=== PATIENT | male | born 1990 | race American Indian/Alaskan Native ===

== ENCOUNTER 2017-02-23 21:15 | Emergency (ER) | payer SELFPAY ==
[2017-02-23 21:36] VITALS: BP 119/76
[2017-02-23 22:40] LABS: Bilirubin,Urine NEG (Negative)
[2017-02-23 22:41] LABS: Blood,Urine SM (Negative); Ketones,Urine NEG (Negative); Leukocyte Esterase,Urine NEG (Negative); Mucus,Urine 3+ /HPF; Nitrite,Urine NEG (Negative); Protein,Urine <15 mg/dL mg/dL (Negative); Urobilinogen,Urine < 2.0 mg/dL (<2.0)
--- NOTE | 2017-02-23 23:09 | Emergency Department Report ---
HPI - General Chief Complaint: Urogenital-Male Time Seen by Provider: 02/23/17 22:50 - HPI HPI: Patient is a 26-year-old male presents to ED and this status is positive for herpes and he wanted to be checked. Patient denies fever/chills/nausea/vomiting /dysuria/lesions/anal pain/scrotal pain/penile discharge or any other problems. ED Past Medical Hx - Past Medical History Previous Medical History?: No - Surgical History Past Surgical History?: No - Social History Smoking Status: Current Every Day Smoker Substance Use Type: Marijuana - Medications Home Medications: Home Medications Medication Instructions Recorded Confirmed Last Taken Type Acetaminophen/Codeine [Tylenol #3] 1 tab PO Q6H PRN #20 tab 02/08/15 Unknown Rx Ibuprofen [Motrin] 600 mg PO Q8H PRN #50 tablet 02/08/15 Unknown Rx Sulfamethoxazole/Trimethoprim 1 each PO BID #20 tablet 02/08/15 Unknown Rx [Bactrim Ds] ED Review of Systems ROS: Stated complaint: POSS STD Other details as noted in HPI Constitutional: denies: chills, fever Eyes: denies: eye pain, eye discharge, vision change ENT: denies: ear pain, throat pain Respiratory: denies: cough, shortness of breath, wheezing Cardiovascular: denies: chest pain, palpitations Endocrine: no symptoms reported Gastrointestinal: denies: abdominal pain, nausea, diarrhea Genitourinary: denies: urgency, dysuria Musculoskeletal: denies: back pain, joint swelling, arthralgia Skin: denies: rash, lesions Neurological: denies: headache, weakness, paresthesias Psychiatric: denies: anxiety, depression Hematological/Lymphatic: denies: easy bleeding, easy bruising Physical Exam - Physical Exam Vital Signs: Vital Signs 02/23/17 21:31 Temperature 99.0 F Pulse Rate 101 H Respiratory 18 Rate Blood Pressure 119/76 [Right] O2 Sat by Pulse 100 Oximetry Physical Exam: GENERAL: Alert and oriented x3, no apparent distress, Normal Gait, atraumatic. LUNGS: Symetrical with respiration, No wheezing, no rales or crackles, CTAB. HEART: S1, S2 present, regular rate and rhythm without murmur, no rubs, no gallops. SKIN: Warm and dry, No lesions, No ulceration or induration present. ED Course Vital Signs 02/23/17 21:31 Temperature 99.0 F Pulse Rate 101 H Respiratory 18 Rate Blood Pressure 119/76 [Right] O2 Sat by Pulse 100 Oximetry ED Medical Decision Making - Medical Decision Making 26-year-old male presents with STD testing ED course: A urinalysis ordered. Urinalysis negative Patient has no symptoms or lesions Vital signs are normal patient has no acute distress Discussed with patient symptoms of herpes. Patient understands Instructions given discussed follow-up with health Department for further testing. Critical care attestation.: If time is entered above; I have spent that time in minutes in the direct care of this critically ill patient, excluding procedure time. ED Disposition Clinical Impression: Exposure to genital herpes Disposition: DISCHARGED TO HOME OR SELFCARE Is pt being admited?: No Does the pt Need Aspirin: No Condition: Stable Instructions: Genital Herpes Simplex (ED) Additional Instructions: Follow-up with clinic or health department as referred for further testing If any symptoms arise return to ED. Referrals: PRIMARY CARE [Primary Care Provider] - 3-5 Days [facility] [Outside] - 3-5 Days [facility] [Outside] - 3-5 Days [facility] [Outside] - 3-5 Days Forms: Accompanied Note, Work/School Release Form(ED) Time of Disposition: 23:35
== END 2017-02-23 23:40 | disposition home or self-care (01) ==
LOC: ED 21:15
DX: Z20.2 Contact with and (suspected) exposure to infections with a predominantly sexual mode of transmission (principal); F17.200 Nicotine dependence, unspecified, uncomplicated; F12.10 Cannabis abuse, uncomplicated
CPT/HCPCS: 81001; 99282

== ENCOUNTER 2017-06-14 11:54 | Emergency (ER) | payer SELFPAY ==
[2017-06-14 13:06] VITALS: BP 123/74
== END 2017-06-14 15:10 ==
LOC: ED 11:54
DX: L02.32 Furuncle of buttock (principal); Z53.21 Procedure and treatment not carried out due to patient leaving prior to being seen by health care provider

== ENCOUNTER 2017-06-15 05:33 | Emergency (ER) | payer SELFPAY ==
[2017-06-15 05:39] VITALS: BP 116/87
--- NOTE | 2017-06-15 08:02 | Emergency Department Report ---
- General Chief complaint: Skin/Abscess/Foreign Body Stated complaint: CYST ON BUTTOCKS Time Seen by Provider: 06/15/17 07:08 Source: patient Mode of arrival: Ambulatory Limitations: No Limitations - History of Present Illness Initial comments: This is a 27-year-old male nontoxic, well nourished in appearance, no acute signs of distress presents to the ED complaining of boil to the cactus region 4 days. Patient stated he had similar episode last year and had a incision and drainage so patient was concerned and brought into the hospital. Patient denies any trauma to the region. Patient denies any fever, chills, testicular pain, swelling, numbness, tingling, back pain, shortness of breath, nausea, vomiting, chest pain, or abdominal pain. Patient denies any allergies or past medical history. MD complaint: abscess/boil -: Gradual, days(s) (4) Tetanus Up to Date: yes Location: buttocks Severity: mild Severity scale (0 -10): 4 Quality: aching Consistency: constant Improves with: none Worsens with: none Context: none Associated symptoms: denies other symptoms Treatments Prior to Arrival: none - Related Data Previous Rx's Medication Instructions Recorded Last Taken Type Acetaminophen/Codeine [Tylenol #3] 1 tab PO Q6H PRN #20 tab 02/08/15 Unknown Rx Ibuprofen [Motrin] 600 mg PO Q8H PRN #50 tablet 02/08/15 Unknown Rx Sulfamethoxazole/Trimethoprim 1 each PO BID #20 tablet 02/08/15 Unknown Rx [Bactrim Ds] Amoxicillin/K Clav Tab [Augmentin 1 tab PO Q12HR #20 tab 06/15/17 Unknown Rx 875 mg] traMADol [Ultram] 50 mg PO Q6HR PRN #15 tablet 06/15/17 Unknown Rx Allergies Allergy/AdvReac Type Severity Reaction Status Date / Time No Known Allergies Allergy Unverified 02/08/15 08:42 Abscess Boil HPI - HPI Chief Complaint: Skin/Abscess/Foreign Body Stated Complaint: CYST ON BUTTOCKS Time Seen by Provider: 06/15/17 07:08 Home Medications: Previous Rx's Medication Instructions Recorded Last Taken Type Acetaminophen/Codeine [Tylenol #3] 1 tab PO Q6H PRN #20 tab 02/08/15 Unknown Rx Ibuprofen [Motrin] 600 mg PO Q8H PRN #50 tablet 02/08/15 Unknown Rx Sulfamethoxazole/Trimethoprim 1 each PO BID #20 tablet 02/08/15 Unknown Rx [Bactrim Ds] Amoxicillin/K Clav Tab [Augmentin 1 tab PO Q12HR #20 tab 06/15/17 Unknown Rx 875 mg] traMADol [Ultram] 50 mg PO Q6HR PRN #15 tablet 06/15/17 Unknown Rx Allergies/Adverse Reactions: Allergies Allergy/AdvReac Type Severity Reaction Status Date / Time No Known Allergies Allergy Unverified 02/08/15 08:42 ED Review of Systems ROS: Stated complaint: CYST ON BUTTOCKS Other details as noted in HPI Constitutional: denies: chills, fever Eyes: denies: eye pain, eye discharge, vision change ENT: denies: ear pain, throat pain Respiratory: denies: cough, shortness of breath, wheezing Cardiovascular: denies: chest pain, palpitations Endocrine: no symptoms reported Gastrointestinal: denies: abdominal pain, nausea, diarrhea Genitourinary: denies: urgency, dysuria Musculoskeletal: denies: back pain, joint swelling, arthralgia Skin: denies: rash, lesions Neurological: denies: headache, weakness, paresthesias Psychiatric: denies: anxiety, depression Hematological/Lymphatic: denies: easy bleeding, easy bruising ED Past Medical Hx - Past Medical History Previous Medical History?: No - Surgical History Past Surgical History?: No - Social History Smoking Status: Current Every Day Smoker Substance Use Type: Marijuana - Medications Home Medications: Home Medications Medication Instructions Recorded Confirmed Last Taken Type Acetaminophen/Codeine [Tylenol #3] 1 tab PO Q6H PRN #20 tab 02/08/15 Unknown Rx Ibuprofen [Motrin] 600 mg PO Q8H PRN #50 tablet 02/08/15 Unknown Rx Sulfamethoxazole/Trimethoprim 1 each PO BID #20 tablet 02/08/15 Unknown Rx [Bactrim Ds] Amoxicillin/K Clav Tab [Augmentin 1 tab PO Q12HR #20 tab 06/15/17 Unknown Rx 875 mg] traMADol [Ultram] 50 mg PO Q6HR PRN #15 tablet 06/15/17 Unknown Rx ED Physical Exam - General Limitations: No Limitations General appearance: alert, in no apparent distress - Head Head exam: Present: atraumatic, normocephalic, normal inspection - Eye Eye exam: Present: normal appearance, PERRL, EOMI. Absent: scleral icterus, conjunctival injection, nystagmus, periorbital swelling, periorbital tenderness Pupils: Present: normal accommodation - ENT ENT exam: Present: normal exam, normal orophraynx, mucous membranes moist, TM's normal bilaterally, normal external ear exam - Neck Neck exam: Present: normal inspection, full ROM. Absent: tenderness, meningismus, lymphadenopathy, thyromegaly - Respiratory Respiratory exam: Present: normal lung sounds bilaterally. Absent: respiratory distress, wheezes, rales, rhonchi, stridor, chest wall tenderness, accessory muscle use, decreased breath sounds, prolonged expiratory - Cardiovascular Cardiovascular Exam: Present: regular rate, normal rhythm, normal heart sounds. Absent: systolic murmur, diastolic murmur, rubs, gallop - GI/Abdominal GI/Abdominal exam: Present: soft, normal bowel sounds. Absent: distended, tenderness, guarding, rebound, rigid, diminished bowel sounds - Rectal Rectal exam: Present: deferred, normal inspection, other ( 1 cm x 1 cm circular swelling that is tender to touch. No induration or fluctuance noted. No pus or drainage. No surrounding erythema or cellulitis as noted.) - Extremities Exam Extremities exam: Present: normal inspection, full ROM, normal capillary refill. Absent: tenderness, pedal edema, joint swelling, calf tenderness - Back Exam Back exam: Present: normal inspection, full ROM. Absent: tenderness, CVA tenderness (R), CVA tenderness (L), muscle spasm, paraspinal tenderness, vertebral tenderness, rash noted - Neurological Exam Neurological exam: Present: alert, oriented X3, CN II-XII intact, normal gait, reflexes normal - Psychiatric Psychiatric exam: Present: normal affect, normal mood - Skin Skin exam: Present: warm, dry, intact, normal color. Absent: rash ED Course Vital Signs 06/15/17 05:37 Temperature 98.5 F Pulse Rate 100 H Respiratory 20 Rate Blood Pressure 116/87 O2 Sat by Pulse 97 Oximetry - Reevaluation(s) Reevaluation #1: 06/15/17 08:06 Patient is speaking in full sentences but no signs of distress noted. ED Medical Decision Making - Medical Decision Making This is a 27-year-old male that presents with non-abscess boil. Upon examination it is tender to touch but there is no fluctuance or induration. I instructed patient to observe symptoms of increased swelling, pus, drainage or worsening symptoms and return to emergency room as was possible for possible incision and drainage. I will treat patient with Augmentin due to the location and the perianal region. Patient was instructed to follow-up with his primary care doctor 3-5 days or if symptoms worsen or continue results of emergency room rest was possible. At time time of discharge, the patient does not seem toxic or ill in appearance. No acute signs of distress noted. Patient agrees to discharge treatment plan of care. No further questions noted by the patient. Critical care attestation.: If time is entered above; I have spent that time in minutes in the direct care of this critically ill patient, excluding procedure time. ED Disposition Clinical Impression: Boil Disposition: DC-01 TO HOME OR SELFCARE Is pt being admited?: No Does the pt Need Aspirin: No Condition: Stable Instructions: Abscess (ED), Amoxicillin/Clavulanate Potassium (By mouth), Tramadol (By mouth) Additional Instructions: follow-up with a primary care doctor in 3-5 days or if symptoms worsen and continue return to emergency room as soon as possible possible. Facial course of Augmentin as prescribed. Do not operate any machinery while taking DUE TO SEDATION/DROWSINESS. Prescriptions: Amoxicillin/K Clav Tab [Augmentin 875 mg] 1 tab PO Q12HR #20 tab traMADol [Ultram] 50 mg PO Q6HR PRN #15 tablet PRN Reason: Pain Referrals: PRIMARY MD KENAN [Primary Care Provider] - 3-5 Days NILDA FERNANDO MD [Staff Physician] - 3-5 Days [facility] [Outside] - 3-5 Days [facility] [Outside] - 3-5 Days Forms: Work/School Release Form(ED)
== END 2017-06-15 08:50 | disposition home or self-care (01) ==
LOC: ED 05:33
DX: L02.32 Furuncle of buttock (principal); F17.200 Nicotine dependence, unspecified, uncomplicated
CPT/HCPCS: 99282

== ENCOUNTER 2018-10-24 12:17 | Emergency (ER) | payer SELFPAY ==
[2018-10-24] MEDS ORDERED: BOOSTRIX IM ONE (13:27)
--- NOTE | 2018-10-24 13:31 | Emergency Department Report ---
ED Laceration HPI - HPI Chief Complaint: Wound/Laceration Stated Complaint: RT HAND INJURY Time Seen by Provider: 10/24/18 13:25 Occurred When: Today Location: Upper Extremity Severity: mild Tetanus Status: Not up to Date Laceration Symptoms: Yes Pain, No Foreign Body Sensation, No Numbness, No Weakness Other History: This is a 28-year-old male nontoxic, well nourished in appearance, no acute signs of distress presents to the ED with c/o of right wrist laceration that occurred today. Patient a laceration at work. Patient denies any self-harm or injuries. Denies any fever, chills, nausea, vomiting, chest pain, shortness of breath, headache or stiff neck. Patient denies any allergies or significant past medical history. ED Review of Systems ROS: Stated complaint: RT HAND INJURY Other details as noted in HPI Constitutional: denies: chills, fever Eyes: denies: eye pain, eye discharge, vision change ENT: denies: ear pain, throat pain Respiratory: denies: cough, shortness of breath, wheezing Cardiovascular: denies: chest pain, palpitations Endocrine: no symptoms reported Gastrointestinal: denies: abdominal pain, nausea, diarrhea Genitourinary: denies: urgency, dysuria Musculoskeletal: denies: back pain, joint swelling, arthralgia Skin: denies: rash, lesions Neurological: denies: headache, weakness, paresthesias Psychiatric: denies: anxiety, depression Hematological/Lymphatic: denies: easy bleeding, easy bruising ED Past Medical Hx - Past Medical History Previous Medical History?: No - Surgical History Past Surgical History?: No - Social History Smoking Status: Current Every Day Smoker Substance Use Type: Marijuana - Medications Home Medications: Home Medications Medication Instructions Recorded Confirmed Last Taken Type Acetaminophen/Codeine [Tylenol #3] 1 tab PO Q6H PRN #20 tab 02/08/15 Unknown Rx Ibuprofen [Motrin] 600 mg PO Q8H PRN #50 tablet 02/08/15 Unknown Rx Sulfamethoxazole/Trimethoprim 1 each PO BID #20 tablet 02/08/15 Unknown Rx [Bactrim Ds] Amoxicillin/K Clav Tab [Augmentin 1 tab PO Q12HR #20 tab 06/15/17 Unknown Rx 875 mg] traMADol [Ultram] 50 mg PO Q6HR PRN #15 tablet 06/15/17 Unknown Rx Acetaminophen/Codeine [Tylenol 1 tab PO Q6H PRN #12 tab 10/24/18 Unknown Rx /Codeine # 3 tab] Sulfamethoxazole/Trimethoprim 1 each PO BID #14 tablet 10/24/18 Unknown Rx [Bactrim DS TAB] Laceration Physical Exam - Exam General: Vital signs noted. No distress. Alert and acting appropriately. Wound Length (cm): 1 Laceration Location: Upper Extremity Laceration Exam: Yes Normal Distal CMS, No Foreign Body, No Exposed Tendon, Vessel, or Nerve, No Tendon Injury ED Course Vital Signs 10/24/18 12:23 Temperature 98.9 F Pulse Rate 95 H Respiratory 18 Rate Blood Pressure 132/77 O2 Sat by Pulse 99 Oximetry - Reevaluation(s) Reevaluation #1: 10/24/18 13:28 Patient is speaking in full sentences with no signs of distress noted. - Laceration /Wound Repair Right Wrist Wound Location: upper extremity Wound Length (cm): 1 Wound's Depth, Shape: superficial Wound Explored: clean Betadine Prep?: Yes Volume Anesthetic (ccs): 40 Wound Repaired With: Dermabond Layer Closure?: No Sterile Dressing Applied?: Yes Progress: Under sterile field, I used Betadine to clean the area. I then used 40 mL of normal saline to flush the area. I then used Dermabond to approximate the laceration. I then applied a sterile 4 x 4 with tape. Minimal bleeding noted but is under control. Patient tolerated procedure well with no signs of distress. ED Medical Decision Making - Medical Decision Making This is a 28-year-old male that presents with laceration. Patient is stable and was examined by me. Dermabond applied. A sterile dressing has been applied. Patient was educated on proper wound care. Patient is discharged with Bactrim and Tylenol with codeine and was instructed not to operate any machinery while taking Tylenol with codeine due to drowsiness. Patient was instructed to refer to Follow-up with a primary care doctor in 3-5 days or if symptoms worsen and continue return to emergency room as soon as possible. At time of discharge, the patient does not seem toxic or ill in appearance. No acute signs of distress noted. Patient agrees to discharge treatment plan of care. No further questions noted by the patient. Critical care attestation.: If time is entered above; I have spent that time in minutes in the direct care of this critically ill patient, excluding procedure time. ED Disposition Clinical Impression: Laceration Disposition: DC-01 TO HOME OR SELFCARE Is pt being admited?: No Does the pt Need Aspirin: No Condition: Stable Instructions: Laceration (ED), Skin Adhesive Care (ED), Acetaminophen/Codeine (By mouth) Additional Instructions: Follow-up with a primary care doctor in 3-5 days or if symptoms worsen and continue return to emergency room as soon as possible. Do not operate any machinery while taking Tylenol with codeine as this may cause drowsiness. Prescriptions: Acetaminophen/Codeine [Tylenol /Codeine # 3 tab] 1 tab PO Q6H PRN #12 tab PRN Reason: Pain , Severe (7-10) Sulfamethoxazole/Trimethoprim [Bactrim DS TAB] 1 each PO BID #14 tablet Referrals: PRIMARY CARE, [Referring] - 3-5 Days VIRAL DONALD MD [Staff Physician] - 3-5 Days [facility] [Outside] - 3-5 Days Forms: Work/School Release Form(ED)
[2018-10-24 14:02] VITALS: BP 142/86
== END 2018-10-24 13:57 | disposition home or self-care (01) ==
LOC: ED 12:17
DX: S61.511A Laceration without foreign body of right wrist, initial encounter (principal); F17.200 Nicotine dependence, unspecified, uncomplicated; W26.8XXA Contact with other sharp object(s), not elsewhere classified, initial encounter; Y93.89 Activity, other specified; Y92.69 Other specified industrial and construction area as the place of occurrence of the external cause; Y99.8 Other external cause status
CPT/HCPCS: 90471; 90715

== ENCOUNTER 2019-09-11 07:52 | Emergency (ER) | payer OTHER ==
[2019-09-11 07:57] VITALS: BP 143/84
--- NOTE | 2019-09-11 08:27 | Emergency Department Report ---
- General Chief Complaint: Upper Respiratory Infection Stated Complaint: FLU SX Time Seen by Provider: 09/11/19 08:23 Source: patient Mode of arrival: Ambulatory Limitations: No Limitations - History of Present Illness Initial Comments: 29-year-old male with no significant past medical history presents to the ER today complaining of productive cough with yellow-brown sputum, rhinorrhea, nasal congestion, sore throat, intermittent generalized weakness, and dizziness x 2 weeks. He reports associated pain in his chest with cough, headache, and also hunger feeling epigastric area and nausea. He states that he has been around his daughter who has been sick with colds. He has been taking [id number] NyQuil and Mucinex. He denies any vomiting, diarrhea, abdominal pain, fever or chills. He does report hx of tobacco use. He reports no focal weakness, syncope, SOB, or any other symptoms at this time. MD Complaint: cough, sore throat, rhinorrhea, nasal congestion, other (nausea, generalized weakness) - Related Data Previous Rx's Medication Instructions Recorded Last Taken Type Acetaminophen/Codeine [Tylenol #3] 1 tab PO Q6H PRN #20 tab 02/08/15 Unknown Rx Ibuprofen [Motrin] 600 mg PO Q8H PRN #50 tablet 02/08/15 Unknown Rx Sulfamethoxazole/Trimethoprim 1 each PO BID #20 tablet 02/08/15 Unknown Rx [Bactrim Ds] traMADoL [Ultram] 50 mg PO Q6HR PRN #15 tablet 06/15/17 Unknown Rx Acetaminophen/Codeine [Tylenol 1 tab PO Q6H PRN #12 tab 10/24/18 Unknown Rx /Codeine # 3 tab] Sulfamethoxazole/Trimethoprim 1 each PO BID #14 tablet 10/24/18 Unknown Rx [Bactrim DS TAB] ALBUTEROL Inhaler (OR & NICU) 2 puff IH QID PRN #8.5 gram 09/11/19 Unknown Rx [ProAir HFA Inhaler] Amoxicillin/K Clav Tab [Augmentin 1 tab PO Q12HR #20 tab 09/11/19 Unknown Rx 875MG TAB] Benzonatate [Tessalon Perles] 100 mg PO Q8HR PRN #30 capsule 09/11/19 Unknown Rx Famotidine [Pepcid] 40 mg PO QHS #30 tablet 09/11/19 Unknown Rx Ondansetron [Zofran Odt] 4 mg PO Q8HR PRN #12 tab.rapdis 09/11/19 Unknown Rx predniSONE [Deltasone] 50 mg PO QDAY 4 Days #4 tab 09/11/19 Unknown Rx Allergies Allergy/AdvReac Type Severity Reaction Status Date / Time No Known Allergies Allergy Verified 10/24/18 12:23 ED Review of Systems ROS: Stated complaint: FLU SX Other details as noted in HPI Comment: All other systems reviewed and negative Constitutional: weakness (generalized). denies: chills, fever ENT: throat pain, congestion, other (Rhinorrhea) Cardiovascular: chest pain (only with cough) Gastrointestinal: nausea. denies: vomiting, diarrhea, constipation, hematemesis, melena, hematochezia Genitourinary: denies: dysuria, frequency, hematuria Neurological: headache, weakness (generalized ), other (intermittent dizziness) ED Past Medical Hx - Past Medical History Previous Medical History?: No - Surgical History Past Surgical History?: No - Social History Smoking Status: Current Every Day Smoker Substance Use Type: None - Medications Home Medications: Home Medications Medication Instructions Recorded Confirmed Last Taken Type Acetaminophen/Codeine [Tylenol #3] 1 tab PO Q6H PRN #20 tab 02/08/15 Unknown Rx Ibuprofen [Motrin] 600 mg PO Q8H PRN #50 tablet 02/08/15 Unknown Rx Sulfamethoxazole/Trimethoprim 1 each PO BID #20 tablet 02/08/15 Unknown Rx [Bactrim Ds] traMADoL [Ultram] 50 mg PO Q6HR PRN #15 tablet 06/15/17 Unknown Rx Acetaminophen/Codeine [Tylenol 1 tab PO Q6H PRN #12 tab 10/24/18 Unknown Rx /Codeine # 3 tab] Sulfamethoxazole/Trimethoprim 1 each PO BID #14 tablet 10/24/18 Unknown Rx [Bactrim DS TAB] ALBUTEROL Inhaler (OR & NICU) 2 puff IH QID PRN #8.5 gram 09/11/19 Unknown Rx [ProAir HFA Inhaler] Amoxicillin/K Clav Tab [Augmentin 1 tab PO Q12HR #20 tab 09/11/19 Unknown Rx 875MG TAB] Benzonatate [Tessalon Perles] 100 mg PO Q8HR PRN #30 capsule 09/11/19 Unknown Rx Famotidine [Pepcid] 40 mg PO QHS #30 tablet 09/11/19 Unknown Rx Ondansetron [Zofran Odt] 4 mg PO Q8HR PRN #12 tab.rapdis 09/11/19 Unknown Rx predniSONE [Deltasone] 50 mg PO QDAY 4 Days #4 tab 09/11/19 Unknown Rx ED Physical Exam - General Limitations: No Limitations General appearance: alert, in no apparent distress - Head Head exam: Present: atraumatic, normocephalic - Eye Eye exam: Present: normal appearance, PERRL, EOMI - ENT ENT exam: Present: normal orophraynx, mucous membranes moist - Neck Neck exam: Present: normal inspection, full ROM, lymphadenopathy (anterior cervical lymph nodes). Absent: meningismus - Respiratory Respiratory exam: Present: wheezes (mild diffuse). Absent: respiratory distress, decreased breath sounds, prolonged expiratory - Cardiovascular Cardiovascular Exam: Present: regular rate, normal rhythm, normal heart sounds - GI/Abdominal GI/Abdominal exam: Present: soft. Absent: distended, tenderness, guarding, rebound - Neurological Exam Neurological exam: Present: alert, oriented X3, CN II-XII intact, normal gait - Psychiatric Psychiatric exam: Present: normal affect, normal mood - Skin Skin exam: Present: intact. Absent: rash ED Course Vital Signs 09/11/19 07:56 Temperature 97.8 F Pulse Rate 89 Respiratory 18 Rate Blood Pressure 143/84 O2 Sat by Pulse 96 Oximetry ED Medical Decision Making - Radiology Data Radiology results: report reviewed - Medical Decision Making Wheezing improved after neb treatment. Patient resting comfortably, no acute distress, he is afebrile, appears well-hydrated, [id number]. This x-ray reviewed. The patient likely has bronchitis/viral syndrome. His epigastric discomfort/hunger feeling and nausea suspect could be related to gastritis; His abdomen is soft and non tender. No further work up indicated at this time. Chest x-ray results, suspected diagnoses and treatment plan with patient. Patient stable at time of discharge. Recommend follow up with PCP, but he understands if anything worsens to return to the ER. Critical care attestation.: If time is entered above; I have spent that time in minutes in the direct care of this critically ill patient, excluding procedure time. ED Disposition Clinical Impression: Acute bronchitis, Gastritis Disposition: DC-01 TO HOME OR SELFCARE Is pt being admited?: No Does the pt Need Aspirin: No Condition: Stable Instructions: Acute Bronchitis (ED), Gastritis (ED) Prescriptions: Famotidine [Pepcid] 40 mg PO QHS #30 tablet Amoxicillin/K Clav Tab [Augmentin 875MG TAB] 1 tab PO Q12HR #20 tab predniSONE [Deltasone] 50 mg PO QDAY 4 Days #4 tab ALBUTEROL Inhaler (OR & NICU) [ProAir HFA Inhaler] 2 puff IH QID PRN #8.5 gram PRN Reason: Shortness Of Breath Benzonatate [Tessalon Perles] 100 mg PO Q8HR PRN #30 capsule PRN Reason: Cough Ondansetron [Zofran Odt] 4 mg PO Q8HR PRN #12 tab.rapdis PRN Reason: Nausea Referrals: PRIMARY CAREMD [Primary Care Provider] - 3-5 Days SHAWN DEAN MD [Staff Physician] - 3-5 Days Forms: Work/School Release Form(ED) Time of Disposition: 10:11
[2019-09-11] MEDS ORDERED: IPRATROPIUM/ALBUTEROL SULFATE 3 ML AMPUL.NEB IH ONE (08:51)
[2019-09-11] MEDS ORDERED: predniSONE 50 MG TAB PO ONE (08:52)
[2019-09-11] MEDS ORDERED: FAMOTIDINE 20 MG TAB PO ONE (08:52)
[2019-09-11] MEDS ORDERED: ONDANSETRON 4 MG ODT TAB PO ONE (08:52)
--- NOTE | 2019-09-11 09:14 | XRay Report ---
CHEST 2 VIEWS INDICATION: cough, wheezing. COMPARISON: None. FINDINGS: Support devices: None. Heart: Within normal limits. Pulmonary vasculature: Normal. Lungs/pleura: No acute air space or interstitial disease. No pneumothorax. Additional findings: None. IMPRESSION: Normal chest. Signer Name: Antonio Tate MD Signed: 09/11/2019 9:10 AM Workstation Name: [id number]
== END 2019-09-11 10:40 | disposition home or self-care (01) ==
LOC: ED 07:52
DX: J20.9 Acute bronchitis, unspecified (principal); K29.70 Gastritis, unspecified, without bleeding; F17.200 Nicotine dependence, unspecified, uncomplicated; Z79.899 Other long term (current) drug therapy
CPT/HCPCS: 71046; 94640; 99283; J7512; Q0162